=== PATIENT | male | born 1960 | race Asian ===

== ENCOUNTER 2016-08-25 08:01 | Day surgery (SDC) | payer BC ==
[~2016-08-25] VITALS: Ht 180.3 cm; Wt 103.9 kg
[2016-08-25 08:35] VITALS: Ht 180.3 cm; Wt 103.9 kg
[2016-08-25] MEDS ORDERED: GABA100C14 PO (08:48)
[2016-08-25] MEDS ORDERED: NAPR275T83 PO (08:48)
[2016-08-25] MEDS ORDERED: METO-407 PO (08:48)
[2016-08-25] MEDS ORDERED: DOCU-159 PO (08:48)
[2016-08-25] MEDS ORDERED: LOVA40TA64 PO (08:48)
[2016-08-25] MEDS ORDERED: FENO150C2 PO (08:48)
[2016-08-25] MEDS ORDERED: ALLO300T2 PO (08:48)
[2016-08-25] MEDS ORDERED: BENA20TA48 PO (08:48)
[2016-08-25 09:01] VITALS: BP 148/86; PULSE 67; RESP 16
[2016-08-25 09:41] VITALS: BP 135/85; RESP 20
[2016-08-25] MEDS ORDERED: MIDAZOLAM 1 MG/ML 2 ML INJ ONE ×2 (09:42→09:43)
[2016-08-25] MEDS ORDERED: FENTAnyl 50 MCG/ML VIAL ONE (09:42)
--- NOTE | 2016-08-27 08:48 | OPR ---
DATE OF OPERATION: 08/25/2016 OPERATION PERFORMED: Colonoscopy and hot biopsy of the polyp. PREOPERATIVE DIAGNOSIS: This is a screening colonoscopy, rule out colon polyps. POSTOPERATIVE DIAGNOSIS: 1. 6 mm lobulated sessile polyp noted in the splenic flexure area. This was removed with the hot biopsy forceps and one Hemoclip was applied for prevention of bleeding. 2. Minimal external hemorrhoids. OPERATIVE PROCEDURE: After the informed written consent is obtained, the patient was asked to lay in the left lateral side. 3 mg Versed, 75 mcg fentanyl was given as intravenous anesthesia. When the patient became somnolent, the Olympus video colonoscope was introduced into the rectum and advanced all the way to the cecum. The entire colon appeared normal. However, at the splenic flexure there was evidence of a 6 mm rough appearing little lobulated polyp which is a sessile polyps noted. By using the hot biopsy forceps this polyp was removed. Before applying the heat, biopsies were also obtained to prevent cautery effect on the polyp and after this one Hemoclip was applied to prevent bleeding. The rest of the colon appeared normal. On the way out minimal external hemorrhoids were noted and the procedure was terminated. After the polyp was removed, in the same area, by using the SPOT, the tattooing was performed for possible future resection. PLAN: Wait for the pathology report. Dictated By: Sohan Ornelas MD /maddi/andrew /Document#: [id number] ; Dr. Tinajero in [facility]
== END 2016-08-25 18:03 | disposition home or self-care (01) ==
LOC: GIL 08:01
PROVIDERS: ATTEND Internal Medicine Gastroenterology
DX: Z12.11 Encounter for screening for malignant neoplasm of colon (principal); K63.5 Polyp of colon; K64.4 Residual hemorrhoidal skin tags
CPT/HCPCS: 45380; 88305; J2250; J3010; Z7610